=== PATIENT | female | born 1980 | race Caucasian/White ===

== ENCOUNTER 2017-06-17 20:00 | Observation (INO) | payer OTHER ==
[~2017-06-17] VITALS: Ht 157.5 cm; Wt 56.9 kg
[2017-06-17 20:00] VITALS: BP 118/70; PULSE 71; RESP 18; TEMP 98.3; O2SAT 98
[~2017-06-17 20:00] MED LIST: KETOROLAC TROMETHAMINE 30 MG/ML (IVP) VIAL IV PUSH PRN; NALOXONE HCL 0.4 MG/ML AMP IV PUSH PRN; ONDANSETRON HCL 4 MG/2 ML VIAL IVP PRN; SODIUM CHLORIDE 0.9% FLUSH 10 ML FLUSH IV FLUSH PRN
[2017-06-17] MEDS: SODIUM CHLORIDE 0.9% FLUSH 10 ML FLUSH IV FLUSH SCH (21:00)
[2017-06-18] VITALS: BP 98/56; PULSE 80; RESP 18; TEMP 98.5; O2SAT 97
[2017-06-18] MEDS: ACETAMINOPHEN 325 MG TAB PO PRN ×2 (00:04→11:39)
[2017-06-18 04:00] VITALS: BP 97/53; PULSE 57; RESP 18; TEMP 97.1; O2SAT 96
[2017-06-18 06:03] LABS: AUTOMATED NEUTROPHIL # 8.6 TH/MM3 (1.8-7.7); BASOPHIL % 0.2 % (0.0-2.0); EOSINOPHIL # 0.2 TH/MM3 (0-0.4); EOSINOPHIL % 2.1 % (0.0-4.0); HEMATOCRIT 36.9 % (35.0-46.0); HEMO FLAGS DIFF FINAL; LYMPH % 16.6 % (9.0-44.0); LYMPHOCYTE # 1.9 TH/MM3 (1.0-4.8); MEAN CELL VOLUME 95.4 FL (80.0-100.0); MEAN CORPUSCULAR HEMOGLOBIN 32.1 PG (27.0-34.0); MEAN CORPUSCULAR HGB CONC 33.7 % (32.0-36.0); MONO % 6.8 % (0.0-8.0); NEUT % 74.3 % (16.0-70.0); PLATELET COUNT 207 TH/MM3 (150-450); RED BLOOD COUNT 3.87 MIL/MM3 (4.00-5.30); RED CELL DISTRIBUTION WIDTH 12.2 % (11.6-17.2); WHITE BLOOD COUNT 11.6 TH/MM3 (4.0-11.0)
[2017-06-18 06:16] LABS: BICARBONATE 21.7 MEQ/L (21.0-32.0); POTASSIUM 3.8 MEQ/L (3.5-5.1)
[2017-06-18] MEDS: SODIUM CHLORIDE 0.9% FLUSH 10 ML FLUSH IV FLUSH SCH ×2 (07:35→19:45)
[2017-06-18 08:00] VITALS: BP 104/58; PULSE 59; RESP 16; TEMP 96.2; O2SAT 98
--- NOTE | 2017-06-18 09:51 | HHI.HP ---
[facility] Primary Care Physician No Primary Care Physician Admission Diagnosis Diagnoses: Travel History International Travel<30 Days: No Contact w/Intl Traveler <30 Da: No History of Present Illness Pt is a 36 yr old female w PMHx of meningitis w left hearing loss, bleeding ulcers, presented to the [place] ED w complains of abdominal pains. Pt states that it all started on Tuesday while at work. 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 Although she was in pain, she pushed through work but had to leave about an hour early that day due to the pain. She went back to work the next day and the pain intensified. She states that the pain was throughout her abdomen and then localized mainly in the lower abdomen. Yesterday her mom and daughter saw her and recommended that she go to the [place] ED for further evaluation. On she did have some nausea but no vomiting. She has been having sweats and chills feeling hot or cold however she doesn't know if she had a fever. Her pain radiated to her back and legs as well. Currently she rates it a 4 out of 10 however she got pain medicine. She admits to increased urinary frequency however abdominal pain with urination. She denies being sexually active. Last sexual encounter was in November of this year. she had a bad breakup and since has been stressed and her appetite has decreased. She has lost weight due to this. She did have diarrhea on but that has no resolved. She denies any prior history of STDs. Her period ended on Tuesday. She states that she has regular periods every 28 days and they usually last only 3 days. she does endorse white vaginal discharge but usually gets it after her period and amount is not different from previous times. She has had 3 vaginal deliveries. No C-sections. Her only surgery was an appendectomy. Review of Systems Except as stated in HPI: all other systems reviewed are Neg Past Family Social History Past Medical History bleeding ulcers Meningitis with left-sided hearing loss. Past Surgical History Appendectomy Allergies: Coded Allergies: No Known Allergies (Unverified , 06/17/17) Family History mom w eye problems father w kidney failure on dialysis Social History smokes 3 packs a week no alcohol no drugs. Physical Exam Vital Signs Vital Signs Date Time Temp Pulse Resp B/P (MAP) Pulse Ox O2 Delivery O2 Flow Rate FiO2 06/18/17 08:00 96.2 59 16 104/58 (73) 98 06/18/17 04:00 97.1 57 18 97/53 (68) 96 06/18/17 00:00 98.5 80 18 98/56 (70) 97 06/17/17 20:00 98.3 71 18 118/70 (86) 98 Physical Exam GENERAL: This is a well-nourished, well-developed patient, in no apparent distress. SKIN: multiple tattoos noted HEAD: Atraumatic. Normocephalic. No temporal or scalp tenderness. EYES: Pupils equal round and reactive. Extraocular motions intact. No scleral icterus. No injection or drainage. ENT: Nose without drainage. Throat without erythema, tonsillar hypertrophy or exudate. Uvula midline. Airway patent. NECK: Trachea midline. No JVD or lymphadenopathy. Supple, nontender, no meningeal signs. CARDIOVASCULAR: Regular rate and rhythm without murmurs RESPIRATORY: Clear to auscultation. Breath sounds equal bilaterally. No wheezes GASTROINTESTINAL: Abdomen soft, tender to palpation in the right lower and suprapubic area, no guarding or rebound. No palpable masses. SAP BW DEVELOPER exam deferred as pt did have a pelvic already in ER which showed copious white discharge and cervical motion tenderness. closed os. MUSCULOSKELETAL: Extremities without edema. NEUROLOGICAL: Awake and alert. Cranial nerves II through XII intact. Motor and sensory grossly within normal limits. Five out of 5 muscle strength in all muscle groups. Normal speech. Laboratory Laboratory Tests Test 06/18/17 05:07 White Blood Count 11.6 Red Blood Count 3.87 Hemoglobin 12.4 Hematocrit 36.9 Mean Corpuscular Volume 95.4 Mean Corpuscular Hemoglobin 32.1 Mean Corpuscular Hemoglobin Concent 33.7 Red Cell Distribution Width 12.2 Platelet Count 207 Mean Platelet Volume 8.6 Neutrophils (%) (Auto) 74.3 Lymphocytes (%) (Auto) 16.6 Monocytes (%) (Auto) 6.8 Eosinophils (%) (Auto) 2.1 Basophils (%) (Auto) 0.2 Neutrophils # (Auto) 8.6 Lymphocytes # (Auto) 1.9 Monocytes # (Auto) 0.8 Eosinophils # (Auto) 0.2 Basophils # (Auto) 0.0 CBC Comment DIFF FINAL Differential Comment Blood Urea Nitrogen 10 Creatinine 0.63 Random Glucose 80 Calcium Level 8.7 Sodium Level 137 Potassium Level 3.8 Chloride Level 107 Carbon Dioxide Level 21.7 Anion Gap 8 Estimat Glomerular Filtration Rate 106 Result Diagram: 06/18/17 0507 06/18/[address] abd/pelvis done in [place] ED on 06/17/17 shows dilated bilateral adnexal tubal structures with trace free fluid in the pelvis and engorged pelvic veins. PID with Bilat hydro or pyosalpinx. Caprini VTE Risk Assessment Caprini VTE Risk Assessment: No/Low Risk (score <= 1) Caprini Risk Assessment Model Point Value = 1 Point Value = 2 Point Value = 3 Point Value = 5 Age 41-60 Minor surgery BMI > 25 kg/m2 Swollen legs Varicose veins or History of unexplained or recurrent spontaneous Oral contraceptives or hormone replacement Sepsis (< 1 month) Serious lung disease, including pneumonia (< 1 month) Abnormal pulmonary function Acute myocardial infarction Congestive heart failure (< 1 month) History of inflammatory bowel disease Medical patient at bed rest Age 61-74 Arthroscopic surgery Major open surgery (> 45 min) Laparoscopic surgery (> 45 min) Malignancy Confined to bed (> 72 hours) Immobilizing plaster cast Central venous access Age >= 75 History of VTE Family history of VTE Factor V Leiden Prothrombin [id number] Lupus anticoagulant Anticardiolipin antibodies Elevated serum homocysteine Heparin-induced thrombocytopenia Other congenital or acquired thrombophilia Stroke (< 1 month) Elective arthroplasty Hip, pelvis, or leg fracture Acute spinal cord injury (< 1 month) Prophylaxis Regimen Total Risk Factor Score Risk Level Prophylaxis Regimen 0-1 Low Early ambulation 2 Moderate Order ONE of the following: *Sequential Compression Device (SCD) *Heparin 5000 units SQ BID 3-4 Higher Order ONE of the following medications: *Heparin 5000 units SQ TID *Enoxaparin/Lovenox 40 mg SQ daily (WT < 150 kg, CrCl > 30 mL/min) *Enoxaparin/Lovenox 30 mg SQ daily (WT < 150 kg, CrCl > 10-29 mL/min) *Enoxaparin/Lovenox 30 mg SQ BID (WT < 150 kg, CrCl > 30 mL/min) AND/OR *Sequential Compression Device (SCD) 5 or more Highest Order ONE of the following medications: *Heparin 5000 units SQ TID (Preferred with Epidurals) *Enoxaparin/Lovenox 40 mg SQ daily (WT < 150 kg, CrCl > 30 mL/min) *Enoxaparin/Lovenox 30 mg SQ daily (WT < 150 kg, CrCl > 10-29 mL/min) *Enoxaparin/Lovenox 30 mg SQ BID (WT < 150 kg, CrCl > 30 mL/min) AND *Sequential Compression Device (SCD) Assessment and Plan Assessment and Plan PID: s/p 1 g rocephin IV x 1 and doxy 100mg po x 1 in ED in [place]. I will start her to cefoxitin 2g IV q6hrs and doxycycline 100mg po q12hrs. I have reviewed report from CT Abd/Pelvis done on 06/17/17 which showed dilated bilateral adnexal tubal structures with trace free fluid in the pelvis and engorged pelvic veins. PID with Bilat hydro or pyosalpinx. SAP BW DEVELOPER consult has been placed. appreciate recs Abdominal Pain. Currently on toradol IV q6rs as needed and seems to control it as well. Pain a 4/10 for now. continue currently management. Poor appetite due to stressful breakup per Pt. Encouraged her to eat healthy. Smoking cessation has been done as well. Pt has been encouraged to establish w PCP as she hasn't done so since her move from [place]. Pt voices her understanding. DVT proph: encourage ambulation. Code Status full Discussed Condition With patient Blanca Ontiveros MD Jun 18, 2017 09:51
[2017-06-18 12:00] VITALS: BP 105/63; PULSE 68; RESP 16; TEMP 96.7; O2SAT 98
[2017-06-18] MEDS: ceFOXitin INJ 2 GM in SODIUM CHLORIDE 0.9% INJ 100 ML IV SCH ×2 (12:51→18:28)
[2017-06-18] MEDS: DOXYCYCLINE HYCLATE 100 MG TAB PO SCH ×2 (12:51→19:43)
[2017-06-18 16:00] VITALS: BP 111/59; PULSE 62; RESP 16; TEMP 96.5; O2SAT 98
--- NOTE | 2017-06-18 16:20 | PD.CONS ---
HPI Chief Complaint Consult for PID/TOA Date Seen: Jun 18, 2017 Time Seen: 16:09 Travel History International Travel<30 Days: No Contact w/Intl Traveler<30Days: No History of Present Illness HPI 36-year-old 3 para 3 with last missed period 1 week ago who was admitted due to abdominal pain and found on CT scan to have bilateral pelvic masses concerning for TOA. She reports having been in her normal state of health until Tuesday or Tuesday when she began having night sweats and abdominal pain. The abdominal pain increased until she was forced to go to the emergency room for evaluation. She denies any irregular bleeding or unusual vaginal discharge. She has no dysuria hematuria or frequency. She reports that she has not had a bowel movement since a because it has been painful to bear down. The patient states that she is already feeling better and is able to stand up straight when she ambulates and this is significant improvement from how she felt and Tuesday. She has not been sexually active for the past 6 months. Her last gynecologic exam was 14 years ago at the time of the of her third child. Last Menstrual Period: Jun 12, 2017 History Past Medical History Narrative Medical No chronic medical conditions Obstetric History Obstetric History 3 vaginal deliveries Past Surgical History Narrative Surgical Appendectomy Family History Family History: Negative Social History Alcohol Use: No Tobacco Use: No Substance Abuse: No Allergies-Medications (Allergen,Severity, Reaction): Coded Allergies: No Known Allergies (Unverified , 06/17/17) Review of Systems General / Constitutional: Fever, Weight Loss, Chills HENT: Headaches, No: Lightheadedness Cardiovascular: No: Irregular Rhythm, Chest Pain or Discomfort, Palpitations, Tachycardia, Syncope, Varicosities, Edema, Cyanosis, Other Gastrointestinal: Abdominal Pain, Changes in Bowel Habits, Loss of Appetite, No : Nausea, Vomiting, Diarrhea, Hematemesis, Hematochezia Genitourinary: No: Urgency, Frequency, Dysuria, Nocturia, Hematuria, Decreased Urinary Output, Oliguria, Hesitancy, Dribbling, Incontinence, Pelvic Pain, Dyspareunia, Discharge, Menorrhagia, Vaginal Bleeding, Other Skin: No Rash, No Change in Nails, No Lesions Physical Exam Vital Signs Date Time Temp Pulse Resp B/P (MAP) Pulse Ox O2 Delivery O2 Flow Rate FiO2 06/18/17 12:00 96.7 68 16 105/63 (77) 98 06/18/17 08:00 96.2 59 16 104/58 (73) 98 06/18/17 04:00 97.1 57 18 97/53 (68) 96 06/18/17 00:00 98.5 80 18 98/56 (70) 97 06/17/17 20:00 98.3 71 18 118/70 (86) 98 Narrative GENERAL: Well-nourished, well-developed patient. SKIN: Warm and dry. HEAD: Normocephalic and atraumatic. EYES: No scleral icterus. No injection or drainage. ENT: No nasal drainage noted. Mucous membranes pink. Airway patent. NECK: Supple, trachea midline. No JVD. CARDIOVASCULAR: Regular rate and rhythm without murmurs, gallops, or rubs. RESPIRATORY: Breath sounds equal bilaterally. No accessory muscle use. ABDOMEN/GI: Abdomen soft, tender to deep palpation in the lower abdomen, bowel sounds present, no rebound, no guarding Gravid to [-] weeks size Fundal Height: [-] GENITOURINARY: External Genitalia: intact and normal in appearance EXTREMITIES: No cyanosis or edema. BACK: Nontender without obvious deformity. No CVA tenderness. NEUROLOGICAL: Awake and alert. Motor and sensory grossly within normal limits. Five out of 5 muscle strength in all muscle groups. Normal speech. Data Data Vital Signs Reviewed: Yes Orders Orders Place In Observation (06/17/17 ) Vital Signs (Adult) Q4H (06/17/17 19:44) Activity Oob With Assistance (06/17/17 19:44) Diet Regular Basic (06/18/17 Breakfast) Sodium Chloride 0.9% Flush (Ns Flush) (06/17/17 19:45) Sodium Chloride 0.9% Flush (Ns Flush) (06/17/17 21:00) Acetaminophen (Tylenol) (06/17/17 19:45) Ondansetron Inj (Zofran Inj) (06/17/17 19:45) Basic Metabolic Panel (Bmp) (06/18/17 06:00) Complete Blood Count With Diff (06/18/17 06:00) Naloxone Inj (Narcan Inj) (06/17/17 19:45) Ketorolac Inj (Toradol Inj) (06/17/17 19:45) Physician Name Changes (06/18/17 ) Consult Gynecology (06/18/17 10:01) Cefoxitin Inj (Mefoxin Inj) (06/18/17 12:00) Doxycycline (Vibratab) (06/18/17 11:30) (Hub Use Only)Inp Phy Cons/Ref (06/18/17 ) Complete Blood Count With Diff (06/19/17 06:00) (Hub Use Only)Inp Phy Cons/Ref (06/18/17 ) Labs Laboratory Tests Test 06/18/17 05:07 White Blood Count 11.6 Red Blood Count 3.87 Hemoglobin 12.4 Hematocrit 36.9 Mean Corpuscular Volume 95.4 Mean Corpuscular Hemoglobin 32.1 Mean Corpuscular Hemoglobin Concent 33.7 Red Cell Distribution Width 12.2 Platelet Count 207 Mean Platelet Volume 8.6 Neutrophils (%) (Auto) 74.3 Lymphocytes (%) (Auto) 16.6 Monocytes (%) (Auto) 6.8 Eosinophils (%) (Auto) 2.1 Basophils (%) (Auto) 0.2 Neutrophils # (Auto) 8.6 Lymphocytes # (Auto) 1.9 Monocytes # (Auto) 0.8 Eosinophils # (Auto) 0.2 Basophils # (Auto) 0.0 CBC Comment DIFF FINAL Differential Comment Blood Urea Nitrogen 10 Creatinine 0.63 Random Glucose 80 Calcium Level 8.7 Sodium Level 137 Potassium Level 3.8 Chloride Level 107 Carbon Dioxide Level 21.7 Anion Gap 8 Estimat Glomerular Filtration Rate 106 MDM Medical Record Reviewed: Yes Narrative Course / MDM Assessment: 36-year-old female admitted for probable TOA. Her GC and chlamydia were negative this admission. She is clinically improved. Plan: Continue cefoxitin and doxycycline. If she remains afebrile and has continued improvement in her abdominal pain she could transition to outpatient management after 48 hours of IV antibiotics to complete a 14 day course of doxycycline. I discussed with the patient importance of outpatient follow-up of this issue as well as the need for routine surveillance Pap smear. Ruy Hagan MD Jun 18, 2017 16:20
[2017-06-18 20:00] VITALS: BP 103/64; PULSE 68; RESP 17; TEMP 96.8; O2SAT 98
[2017-06-19] VITALS: BP 100/62; PULSE 61; RESP 17; TEMP 96.2; O2SAT 98
[2017-06-19] MEDS: ceFOXitin INJ 2 GM in SODIUM CHLORIDE 0.9% INJ 100 ML IV SCH ×5 (00:26→23:35)
[2017-06-19 05:08] LABS: AUTOMATED NEUTROPHIL # 5.5 TH/MM3 (1.8-7.7); BASOPHIL % 0.3 % (0.0-2.0); EOSINOPHIL # 0.2 TH/MM3 (0-0.4); EOSINOPHIL % 2.9 % (0.0-4.0); HEMATOCRIT 34.6 % (35.0-46.0); HEMO FLAGS DIFF FINAL; LYMPH % 21.6 % (9.0-44.0); LYMPHOCYTE # 1.7 TH/MM3 (1.0-4.8); MEAN CELL VOLUME 93.7 FL (80.0-100.0); MEAN CORPUSCULAR HEMOGLOBIN 32.4 PG (27.0-34.0); MEAN CORPUSCULAR HGB CONC 34.5 % (32.0-36.0); MONO % 5.4 % (0.0-8.0); NEUT % 69.8 % (16.0-70.0); PLATELET COUNT 224 TH/MM3 (150-450); RED BLOOD COUNT 3.69 MIL/MM3 (4.00-5.30); RED CELL DISTRIBUTION WIDTH 12.2 % (11.6-17.2); WHITE BLOOD COUNT 7.8 TH/MM3 (4.0-11.0)
[2017-06-19] MEDS: ACETAMINOPHEN 325 MG TAB PO PRN (05:13)
[2017-06-19] MEDS: SODIUM CHLORIDE 0.9% FLUSH 10 ML FLUSH IV FLUSH SCH ×2 (07:45→19:33)
[2017-06-19] MEDS: DOXYCYCLINE HYCLATE 100 MG TAB PO SCH ×2 (07:45→19:32)
[2017-06-19 08:00] VITALS: BP 99/66; PULSE 54; RESP 16; TEMP 96.4; O2SAT 98
--- NOTE | 2017-06-19 09:40 | HHI.PR ---
EDI CONSULTANT Note Note Hospital day #2 The patient reports continued improvement/resolution of her abdominal pain. Vital signs stable afebrile Abdomen is soft, nondistended, diminished tenderness compared to yesterday's examination Assessment: Resolving pelvic abdominal pain in a patient with bilateral TOAs Plan: Recommend transitioning to oral doxycycline for the remainder of a 14 day course at the completion of 48 hours of IV antibiotics. Outpatient follow-up with gynecology. The patient has no local surveillance monitor and she may consider Dr. Delonte Branham at [facility]. Ruy Hagan MD Jun 19, 2017 09:40
[2017-06-19 12:00] VITALS: BP 109/70; PULSE 69; RESP 17; TEMP 96.5; O2SAT 99
--- NOTE | 2017-06-19 15:09 | HHI.PR ---
Subjective Remarks Feeling much better. Had a headache and now has resolved. Abdominal pain also resolved today hoping to go home soon. Objective Vitals Vital Signs Date Time Temp Pulse Resp B/P (MAP) Pulse Ox O2 Delivery O2 Flow Rate FiO2 06/19/17 12:00 96.5 69 17 109/70 (83) 99 06/19/17 08:00 96.4 54 16 99/66 (77) 98 06/19/17 00:00 96.2 61 17 100/62 (75) 98 06/18/17 20:00 96.8 68 17 103/64 (77) 98 06/18/17 16:00 96.5 62 16 111/59 (76) 98 I/O 06/18/17 06/18/17 06/18/17 06/19/17 06/19/17 06/19/17 07:00 15:00 23:00 07:00 15:00 23:00 Intake Total 480 ml 750 ml 440 ml 100 ml Output Total 125 ml 400 ml Balance 355 ml 350 ml 440 ml 100 ml Intake Oral 480 ml 650 ml 240 ml IV Total 100 ml 200 ml 100 ml Output Urine Total 125 ml 400 ml # Voids 3 1 # Bowel Movements 0 0 Result Diagram: 06/19/17 0435 06/18/17 0507 Objective Remarks GENERAL: This is a well-nourished, well-developed patient, in no apparent distress. SKIN: multiple tattoos noted NECK: Trachea midline. CARDIOVASCULAR: Regular rate and rhythm without murmurs RESPIRATORY: Clear to auscultation. Breath sounds equal bilaterally. No wheezes GASTROINTESTINAL: Abdomen soft, non tender to palpation, no guarding or rebound. No palpable masses. MUSCULOSKELETAL: Extremities without edema. NEUROLOGICAL: Awake and alert. Cranial nerves II through XII intact. Motor and sensory grossly within normal limits. Normal speech. A/P Assessment and Plan PID: s/p 1 g rocephin IV x 1 and doxy 100mg po x 1 in ED in [place]. on cefoxitin 2g IV q6hrs and doxycycline 100mg po q12hrs. CT Abd/Pelvis done on 06/17/17 showed dilated bilateral adnexal tubal structures with trace free fluid in the pelvis and engorged pelvic veins. PID with Bilat hydro or pyosalpinx. TOOLROOM MACHINIST following and recommends giving IV abx x 48 hrs and then switching her to po doxycycline x 14 days. Pt to f/u w TOOLROOM MACHINIST as an outpatient. Abdominal Pain. Currently controlled on toradol IV q6rs as needed Poor appetite due to stressful breakup per Pt. Encouraged her to eat healthy. Smoking cessation has been done as well. Pt has been encouraged to establish w PCP as she hasn't done so since her move from [place] to [place]. Pt voices her understanding. DVT proph: encourage ambulation. Discharge Planning anticipate discharge tomorrow morning Blanca Ontiveros MD Jun 19, 2017 15:09
[2017-06-19 16:00] VITALS: BP 100/66; PULSE 59; RESP 16; TEMP 97.4; O2SAT 98
[2017-06-19 20:00] VITALS: BP 116/74; PULSE 70; RESP 17; TEMP 97.4; O2SAT 98
[2017-06-20] VITALS: BP 103/67; PULSE 60; RESP 17; TEMP 96.1; O2SAT 99
[2017-06-20] MEDS: ceFOXitin INJ 2 GM in SODIUM CHLORIDE 0.9% INJ 100 ML IV SCH ×3 (05:19→11:52)
[2017-06-20 08:00] VITALS: BP 105/69; PULSE 52; RESP 16; TEMP 97.9; O2SAT 99
--- NOTE | 2017-06-20 08:47 | HHI.PR ---
OCCUPATIONAL MEDICINE PHYSICIAN Note Note Pt doing well. Pt reports some pain this morning. Tolerating PO. Ambulating and voiding. No vaginal bleeding or discharge. O: Afebrile. VSS WCC 7.8 Abdomen soft, non-tender, no masses palpable. Non-acute abdomen. A/Plan: 37 yo P3 admitted with TOA. Doing well. Afebrile with normal WCC and satisfactory abdomen exam. Agree with plan by Dr Yepez, as outlined yesterday, for discharge home from FILLER OPERATOR viewpoint , on PO antibiotics She has no FILLER OPERATOR but will make arrangements to see one, and recommendations have been made. Young Abarca MD Jun 20, 2017 08:47
[2017-06-20] MEDS ORDERED: DOXY100T PO (10:23)
[2017-06-20] MEDS ORDERED: TRAM50TA PO (10:24)
--- NOTE | 2017-06-20 10:33 | HHI.DS ---
Discharge Summary Admission Date Jun 17, 2017 at 20:04 Discharge Date: Jun 20, 2017 Admitting Diagnosis (1) PID (acute pelvic inflammatory disease) ICD Code: N73.0 - Acute parametritis and pelvic cellulitis Procedures none Brief History - From Admission Pt is a 36 yr old female w PMHx of meningitis w left hearing loss, bleeding ulcers, presented to the [place] ED w complains of abdominal pains. Pt states that it all started on Tuesday while at work. 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 Although she was in pain, she pushed through work but had to leave about an hour early that day due to the pain. She went back to work the next day and the pain intensified. She states that the pain was throughout her abdomen and then localized mainly in the lower abdomen. Yesterday her mom and daughter saw her and recommended that she go to the [place] ED for further evaluation. On she did have some nausea but no vomiting. She has been having sweats and chills feeling hot or cold however she doesn't know if she had a fever. Her pain radiated to her back and legs as well. Currently she rates it a 4 out of 10 however she got pain medicine. She admits to increased urinary frequency however abdominal pain with urination. She denies being sexually active. Last sexual encounter was in November of this year. she had a bad breakup and since has been stressed and her appetite has decreased. She has lost weight due to this. She did have diarrhea on but that has no resolved. She denies any prior history of STDs. Her period ended on Tuesday. She states that she has regular periods every 28 days and they usually last only 3 days. she does endorse white vaginal discharge but usually gets it after her period and amount is not different from previous times. She has had 3 vaginal deliveries. No C-sections. Her only surgery was an appendectomy. CBC/BMP: 06/19/17 0435 06/18/17 0507 Significant Findings Laboratory Tests Test 06/18/17 05:07 06/19/17 04:35 White Blood Count 11.6 TH/MM3 (4.0-11.0) Red Blood Count 3.87 MIL/MM3 (4.00-5.30) 3.69 MIL/MM3 (4.00-5.30) Neutrophils (%) (Auto) 74.3 % (16.0-70.0) Neutrophils # (Auto) 8.6 TH/MM3 (1.8-7.7) Hematocrit 34.6 % (35.0-46.0) PE at Discharge GENERAL: This is a well-nourished, well-developed patient SKIN: multiple tattoos noted NECK: Trachea midline. CARDIOVASCULAR: Regular rate and rhythm without murmurs RESPIRATORY: Clear to auscultation. Breath sounds equal bilaterally. No wheezes GASTROINTESTINAL: Abdomen soft, non tender to palpation, no guarding or rebound. No palpable masses. MUSCULOSKELETAL: Extremities without edema. NEUROLOGICAL: Awake and alert. Cranial nerves II through XII intact. Motor and sensory grossly within normal limits. Normal speech. Pt update on day of discharge Pt doing well this morning, she had some sharp pain last night but now has resolved. denies any CP/SOB/N/V Looking forward to being discharged today Hospital Course PID: s/p 1 g rocephin IV x 1 and doxy 100mg po x 1 in ED in [place]. on cefoxitin 2g IV q6hrs and doxycycline 100mg po q12hrs. CT Abd/Pelvis done on 06/17/17 showed dilated bilateral adnexal tubal structures with trace free fluid in the pelvis and engorged pelvic veins. PID with Bilat hydro or pyosalpinx. RN CLINICAL REVIEW following and recommends giving IV abx x 48 hrs and then switching her to po doxycycline x 14 days. Pt to f/u w RN CLINICAL REVIEW as an outpatient. Information has been provided to patient. Abdominal Pain. controlled, recommended over the counter ibuprofen 600mg po q6hrs prn, but will also give tramadol as needed in case pain is worst. Poor appetite due to stressful breakup per Pt. Encouraged her to eat healthy. Smoking cessation has been done as well. Pt has been encouraged to establish w PCP as she hasn't done so since her move from [place] to [place]. Pt voices her understanding. Pt Condition on Discharge: Stable Discharge Disposition: Discharge Home Discharge Time: > 30 minutes Discharge Instructions DIET: Follow Instructions for: As Tolerated, No Restrictions Activities you can perform: Regular-No Restrictions Follow up Referrals: ADDICTIONS RECOVERY SPECIALIST - 1 Week with Delonte Mckeon MD PCP Follow-up - 2 Weeks New Medications: Tramadol (Tramadol) 50 Mg Tab 50 MG PO Q6H PRN for PAIN, #10 TAB 0 Refills Doxycycline Hyclate (Doxycycline Hyclate) 100 Mg Tab 100 MG PO Q12HR for 14 Days, TAB Blanca Ontiveros MD Jun 20, 2017 10:33
[2017-06-20] MEDS: SODIUM CHLORIDE 0.9% FLUSH 10 ML FLUSH IV FLUSH SCH (11:38)
[2017-06-20] MEDS: DOXYCYCLINE HYCLATE 100 MG TAB PO SCH (11:38)
[2017-06-20 12:00] VITALS: BP 108/66; PULSE 63; RESP 16; TEMP 96.8; O2SAT 99
== END 2017-06-20 13:27 | disposition home or self-care (01) ==
LOC: PHEDDLT 20:00 → N07B 20:04
PROVIDERS: ADMIT Hospitalist; ATTEND Hospitalist
DX: N73.0 Acute parametritis and pelvic cellulitis (principal); N70.91 Salpingitis, unspecified; H91.92 Unspecified hearing loss, left ear; Z86.61 Personal history of infections of the central nervous system
CPT/HCPCS: 74177; 80048; 80053; 81001; 83690; 84702; 85025; 87210; 87491; 87591; 96365; 96375; 99284; G0378; J0694; J0696; J1885; Q9967

== ENCOUNTER → 2017-10-17 | Day surgery (SDC) | payer OTHER ==
--- NOTE | 2017-10-16 13:33 | MH ---
cc: KAELYN HERNANDEZ M.D. DATE OF ADMISSION: 10/17/2017 ADMITTING DIAGNOSIS: HISTORY OF PRESENT ILLNESS: The patient is a 37 year-old white female, G4-P3 0-1-3, who presented to my office for a follow up of abdominal pain that she experienced in the emergency room in June of 2017. We performed a Pap smear on the patient at that time due to the fact that she had not had one in a while and the Pap smear had come back with a high-grade lesion, atypical endocervical cells present. We called her back for a colposcopy which she underwent which revealed lesions identified between 9 and 12 o'clock and 6 and 9 o'clock. The lesion really had a lot of mosaicism and punctation. We performed biopsies of those lesions which came back as CIN3, high-grade JORDYN, and the endocervical curettage also came back with CIN3 high-grade lesion. Due to these findings, I recommended that we undergo a cold knife cone biopsy for further diagnosis and hopefully definitive treatment and the patient desires to proceed with that. PAST MEDICAL HISTORY: Peptic ulcer disease. PAST SURGICAL HISTORY: 1. Appendectomy. 2. Left ear surgery. CURRENT MEDICATIONS: ____ control. ALLERGIES TO MEDICATIONS None. SOCIAL HISTORY Seven cigarettes per day. No alcohol. No drug use. 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 FAMILY HISTORY: Renal disease and breast cancer. SERVICES MANAGER HISTORY: No prior abnormal Pap smear. No history of STDs. OBSTETRICAL HISTORY: x3. One SAB. PHYSICAL EXAMINATION: VITAL SIGNS: Blood pressure 120/68, pulse of 70, weight 123, height 5 feet 2 inches. Breasts: Without masses, nodes or discharge. Chest: Clear to auscultation bilaterally. Cardiac: Regular rate and rhythm without murmur, rub or gallop. Abdomen: Soft, nontender, nondistended. There is no hepatosplenomegaly and no CVA tenderness. No hernias. Pelvic: Normal external female genitalia. Vaginal vault within normal limits. Cervix is as described in the HPI. Adnexa no masses, nontender. ASSESSMENT AND PLAN: CIN3 of ecto and endocervix. The plan will be for cold knife cone biopsy. MD CYRUS Whitehead/GALILEA /12:28 PM /1:15 PM
[~2017-10-17] VITALS: Ht 157.5 cm; Wt 54.4 kg
[~2017-10-17] MED LIST changes: +ACETAMINOPHEN 1000 MG/100 ML 100 ML IV ONE; +APREPITANT 40 MG CAP ONE; +CHLORHEXIDINE GLUCONATE 2 % 1 PACK (2 CLOTHS) TOPICAL PRN; +DEXAMETHASONE SOD PHOS 4 MG/ML VIAL IV ONE; +DO NOT ADM ANY ANTICOAGULANT DRUGS PRN; +FAMOTIDINE 20 MG/2 ML VIAL ONE; +GLYCOPYRROLATE 1 MG/5 ML SYRINGE IV PUSH ONE; +KETOROLAC TROMETHAMINE 30 MG/ML (IVP) VIAL IV PUSH ONE; -KETOROLAC TROMETHAMINE 30 MG/ML (IVP) VIAL IV PUSH PRN; +LACTATED RINGER'S 1000 ML IV PRN; +LIDOCAINE 1%/EPINEPHrine 1:100,000 SOLN 50 ML VIAL ONE; +LIDOCAINE HCL 1% PF 5 ML SYRINGE OTHER ONE; +METOPROLOL TARTRATE 25 MG TAB PO PRN; +MIDAZOLAM HCL 2 MG/2 ML VIAL ONE; -NALOXONE HCL 0.4 MG/ML AMP IV PUSH PRN; +NEOSTIGMINE 5 MG/5 ML SYRINGE IV PUSH ONE; +ONDANSETRON HCL 4 MG/2 ML VIAL IV ONE; +ONDANSETRON HCL 4 MG/2 ML VIAL IV PUSH PRN; -ONDANSETRON HCL 4 MG/2 ML VIAL IVP PRN; +PHENYLEPH/NS 1000 MCG/10 ML SYR IV ONE; +POVIDONE IODINE 5% (ANTISEPSIS KIT) 4 APPLICATIONS EACH NARE PRN; +PROPOFOL 200 MG/20 ML AMP IV ONE; +ROCURONIUM INJ 50 MG/5 ML SYRINGE IV PUSH ONE; +SODIUM CHLORID 0.9% 500 ML IV PRN; -SODIUM CHLORIDE 0.9% FLUSH 10 ML FLUSH IV FLUSH PRN; +VECURONIUM BROMIDE 20 MG VIAL IV ONE; +ePHEDrine/NS 25 MG/5 ML SYRINGE IV ONE; +oxyCODONE/ACETAMINOPHEN 5 MG/325 MG TAB PO PRN
[2017-10-17 10:06] VITALS: BP 110/65; PULSE 50; RESP 18; TEMP 97.7; O2SAT 98
--- NOTE | 2017-10-18 11:19 | MP ---
cc: KAELYN HERNANDEZ M.D. DATE OF SURGERY 10/17/2017 PREOPERATIVE DIAGNOSIS CHICA-III of the ecto and endocervix. POSTOPERATIVE DIAGNOSIS CHICA-III of the ecto and endocervix. PROCEDURE PERFORMED Cold knife cone biopsy OPERATING SURGEON Dr. Kaelyn Hernandez ANESTHESIA General by facemask FINDINGS IN SURGERY Included a multiparous cervix. BLOOD LOSS Minimal COMPLICATIONS None PROCEDURE IN DETAIL After proper consents were obtained, the patient was taken to the operating room where general by face mask anesthesia was applied. She was then placed in dorsolithotomy position and sterilely prepped and draped. At this time, two stay sutures were placed at 3 and 9 o'clock of 0 Vicryl. I then injected lidocaine with epinephrine solution at 2, 4, 8 and 10 o'clock positions. I then performed a cold knife cone without difficulty. I then performed an ECC. I cauterized the bed of the cervical cone for hemostasis. I then ran in interlocking fashion the stay suture from [address] to 9 o'clock and then from 9 to 3 o'clock. I placed Surgicel in the bed of the cone biopsy, tied that in place and then I was completely finished with the surgery. Counts were correct. Hemostasis was assured and the patient was stable to the recovery room. MD CYRUS Whitehead/SONIA /4:37 PM /11:11 AM
== END | disposition home or self-care (01) ==
LOC: HSDC 05:33
PROVIDERS: ATTEND Obstetrics & Gynecology
DX: D06.9 Carcinoma in situ of cervix, unspecified (principal)
CPT/HCPCS: 00940; 57520; 84702; 88305; 88307; J0131; J1100; J1885; J2250; J2370; J2405; J2710; J3010; J7120; J8501